=== PATIENT | female | born 1970 ===

== ENCOUNTER 2021-04-02 20:56 | Outpatient (REF) | payer SELFPAY ==
[2021-04-04 14:27] LABS: COVID-19 RT-PCR UVMMC Result Negative (Negative)
== END 2021-04-02 20:57 | disposition home or self-care (01) ==
LOC: NCHCN 20:56
PROVIDERS: PCP Nurse Practitioner Family; Visit Provider Internal Medicine
DX: Z20.822 Contact with and (suspected) exposure to COVID-19 (principal)
CPT/HCPCS: U0003